=== PATIENT | female | born 1955 | race Caucasian/White ===

== ENCOUNTER 2021-09-02 10:35 | Outpatient (REF) | payer OTHER, SELFPAY ==
[2021-09-02 13:49] LABS: Basophils Absolute Auto 0.1 X10*3/uL (0.0-0.2); Basophils Percent Auto 0.6 % (0-2); Eosinophils Absolute Auto 2.6 X10*3/uL (0.0-0.4); Eosinophils Percent Auto 22.4 % (0-4); Imm Gran Abs Auto 0.05 X10*3/uL (0.00-0.03); Imm Gran Pct Auto 0.4 % (0.0-0.4); Lymphocytes Absolute Auto 1.5 X10*3/uL (1.2-4.9); Lymphocytes Percent Auto 13.1 % (20-40); MANUAL DIFF FLAG SCAN; Mean Corpuscular HGB Conc 33.3 g/dl (31.0-35.0); Mean Corpuscular Hemoglobin 32.5 pg (27.0-33.0); Mean Corpuscular Volume 97.6 fL (80.0-98.0); Mean Platelet Volume 12.1 fL (9.4-12.3); Monocytes Percent Auto 8.3 % (2-11); Neutrophils Absolute Auto 6.5 x10*3/uL (2.0-8.3); Neutrophils Percent Auto 55.2 % (45-73); Platelet Count 191 X10*3/uL (160-400); Red Blood Count 3.69 X10*6/uL (4.20-5.50); Red Cell Distribution Width 13.2 % (11.0-16.0); SCAN SMEAR FLAG 1; White Blood Count 11.7 X10*3/uL (4.8-10.8)
[2021-09-02 14:00] LABS: C Reactive Protein 0.49 mg/dL (< or = 0.50)
[2021-09-02 14:15] LABS: SLIDE REVIEW VERIFIED
[2021-09-02 14:23] LABS: Erythrocyte Sedimentation Rate 4 MM/HR (0-20)
== END 2021-09-02 10:36 | disposition home or self-care (01) ==
LOC: HO.10HDL 10:35
PROVIDERS: Visit Provider Otolaryngology
DX: L50.9 Urticaria, unspecified (principal)
CPT/HCPCS: 36415; 85025; 85652; 86140

== ENCOUNTER 2021-09-16 10:52 | Outpatient (REF) | payer OTHER, SELFPAY ==
[2021-09-17 04:23] LABS: HBS Num1 3.02 mIU/mL (0-7.99); HBc Num1 0.07 S/CO (0.00-0.79); HBsAGNum1 0.31 S/CO (0.00-0.99); HIV AB/AG Nonreactive (Nonreactive); HIV Num 1 0.07 S/CO (0.00-0.99); Hepatitis B Core Antibody Nonreactive (Nonreactive); Hepatitis B Surface Antigen Negative (Negative); ~HepC Num1 0.15 S/CO (0.00-0.79); ~Hepatitis B Surface Antibody NONREACTIVE (Nonreactive); ~Hepatitis C Antibody Nonreactive (Nonreactive)
[2021-09-18 03:38] LABS: Syphilis Screen Nonreactive (Nonreactive)
[2021-09-18 11:32] LABS: Immunoglobulin A 203 mg/dL (70-320)
[2021-09-18 16:36] LABS: Transglutaminase IgA <1.0 U/mL
== END 2021-09-16 10:53 | disposition home or self-care (01) ==
LOC: HO.LAB 10:52
PROVIDERS: Visit Provider Internal Medicine
DX: R21 Rash and other nonspecific skin eruption (principal); Z86.16 Personal history of COVID-19; Z11.3 Encounter for screening for infections with a predominantly sexual mode of transmission
CPT/HCPCS: 36415; 82784; 83516; 86704; 86706; 86780; 86803; 87340; 87389

== ENCOUNTER 2022-04-21 05:56 | Day surgery (SDC) | payer OTHER, SELFPAY ==
[2022-04-15 09:07] VITALS: BMI 28.5
--- NOTE | 2022-04-17 10:06 | MHC.SHP ---
Pre-Procedural Eval Section A Date of Service: 04/17/22 The patient is an INPATIENT: No Changes since office visit: No Cold of Flu in the past 2 weeks, No New Medical Problems, No Changes in Medication and No Patient answered all questions The History & Physical has been completed within 30 days and I have reviewed it.: Yes Section B Chief Complaint: cataract Allergies: Allergies Allergy/AdvReac Type Severity Reaction Status Date / Time amoxicillin [From AUGMENTIN] AdvReac Intermediate HIVES Unverified 04/15/22 09:03 clavulanic acid AdvReac Intermediate HIVES Unverified 04/15/22 09:03 [From AUGMENTIN] telithromycin [From KETEK] AdvReac Intermediate HIVES Unverified 06/14/20 18:48 terbinafine [From LAMISIL] AdvReac Intermediate HIVES Unverified 04/15/22 09:03 Plan Diagnosis/Plan: Unchanged I have reviewed the history and physical and performed a pertinent physical examination on my patient. No changes have occurred unless specified.
--- NOTE | 2022-04-18 08:52 | HO.ANESPROP2 ---
Documented by User: Shweta Ventura NP 04/18/22 08:53 HPI - Anesthesia Eval Consult details Narrative: 66yo F for Left Cataract Extraction IOL Insertion PCP cleared No prev cataract on record PMFSH Active Problems Active Problems: All Active Problems (Updated 04/14/22 @ 15:02 by Vicki Bailey, CHANTEL) Hypertension (Acute) Rash (Acute) Past Medical History Medical History (Updated 04/14/22 @ 15:02 by Vicki Bailey RN) GERD (gastroesophageal reflux disease) Gout Hypertension Rash Surgical History Surgical History (Updated 04/15/22 @ 09:06 by Vicki Bailey, CHANTEL) History of bunionectomy of left great toe History of cholecystectomy History of foot surgery History of laryngoscopy History of meniscectomy of left knee History of nasal surgery Hx of colonoscopy Hx of hand surgery Hx of repair of right rotator cuff Social History Social History Are you a primary director day care center to a significant other at home: No Do you presently have visiting nurse or other home services: No Patient Tobacco Use Status: Former Tobacco user Quit Date: 8 yrs ago Tobacco use type: Cigarette Second Hand Smoke Exposure: No Use of substances other than those prescribed or required for medical reasons: No Have you been hit, kicked, punched, or otherwise hurt by someone within the past year? If so, by whom?: No Are you DNR?: No Advance Directives: No Advance Directives Information Provided: Yes Advance Directives on File: No Recently lost weight without trying: No Eating poorly because of decreased appetite: No Nutrition Risks: No Nutritional Risk Meds Allergies Allergy/AdvReac Type Severity Reaction Status Date / Time amoxicillin [From AUGMENTIN] AdvReac Intermediate HIVES Verified 04/21/22 06:28 clavulanic acid AdvReac Intermediate HIVES Verified 04/21/22 06:28 [From AUGMENTIN] telithromycin [From KETEK] AdvReac Intermediate HIVES Verified 04/21/22 06:28 terbinafine [From LAMISIL] AdvReac Intermediate HIVES Verified 04/21/22 06:28 Home Medications Medication Instructions Recorded Confirmed Last Taken Type allopurinol 100 mg tablet 100 mg PO DAILY 04/14/22 04/15/22 04/21/22 History colchicine 0.6 mg tablet 0.6 mg PO DAILY PRN Gout Flare ups 04/14/22 04/15/22 Unknown History olmesartan 40 1 tab PO DAILY 04/14/22 04/15/22 Unknown History mg-hydrochlorothiazide 25 mg tablet (Benicar HCT) valacyclovir 1 gram tablet 1,000 mg PO BID 04/14/22 04/15/22 Unknown History doxepin 25 mg capsule 25 mg PO BEDTIME 04/15/22 04/15/22 Unknown History ferrous sulfate 325 mg (65 mg 325 mg PO DAILY 04/15/22 04/15/22 Unknown History iron) tablet (iron) Exam Exam Date and Time: April 18, 2022 0852 Height,Weight and Vital Signs: Height 5 ft 8 in Weight 85.275 kg Assessment and Plan Assessment Anesthesia Assessment: Chart Reviewed Documented by User: Anika Bond MD 04/21/22 08:48 [facility] Past Medical History Medical History (Updated 04/14/22 @ 15:02 by Vicki Bailey RN) GERD (gastroesophageal reflux disease) Gout Hypertension Rash Family History Family history of problems with anesthesia: No Surgical History Surgical History (Updated 04/15/22 @ 09:06 by Vicki Bailey, CHANTEL) History of bunionectomy of left great toe History of cholecystectomy History of foot surgery History of laryngoscopy History of meniscectomy of left knee History of nasal surgery Hx of colonoscopy Hx of hand surgery Hx of repair of right rotator cuff History of Problems with Anesthesia: No Social History Social History Are you a primary director day care center to a significant other at home: No Do you presently have visiting nurse or other home services: No Patient Tobacco Use Status: Former Tobacco user Quit Date: 8 yrs ago Tobacco use type: Cigarette Second Hand Smoke Exposure: No Use of substances other than those prescribed or required for medical reasons: No Have you been hit, kicked, punched, or otherwise hurt by someone within the past year? If so, by whom?: No Are you DNR?: No Advance Directives: No Advance Directives Information Provided: Yes Advance Directives on File: No Recently lost weight without trying: No Eating poorly because of decreased appetite: No Nutrition Risks: No Nutritional Risk Meds Allergies Allergy/AdvReac Type Severity Reaction Status Date / Time amoxicillin [From AUGMENTIN] AdvReac Intermediate HIVES Verified 04/21/22 06:28 clavulanic acid AdvReac Intermediate HIVES Verified 04/21/22 06:28 [From AUGMENTIN] telithromycin [From KETEK] AdvReac Intermediate HIVES Verified 04/21/22 06:28 terbinafine [From LAMISIL] AdvReac Intermediate HIVES Verified 04/21/22 06:28 Home Medications Medication Instructions Recorded Confirmed Last Taken Type allopurinol 100 mg tablet 100 mg PO DAILY 04/14/22 04/15/22 04/21/22 History colchicine 0.6 mg tablet 0.6 mg PO DAILY PRN Gout Flare ups 04/14/22 04/15/22 Unknown History olmesartan 40 1 tab PO DAILY 04/14/22 04/15/22 Unknown History mg-hydrochlorothiazide 25 mg tablet (Benicar HCT) valacyclovir 1 gram tablet 1,000 mg PO BID 04/14/22 04/15/22 Unknown History doxepin 25 mg capsule 25 mg PO BEDTIME 04/15/22 04/15/22 Unknown History ferrous sulfate 325 mg (65 mg 325 mg PO DAILY 04/15/22 04/15/22 Unknown History iron) tablet (iron) Exam Height,Weight and Vital Signs: Height 5 ft 8 in Weight 85.275 kg Vital Signs Temp Pulse Resp BP Pulse Ox O2 Del Method 04/21/22 07:55 97 F 72 16 93/45 L 96 Room Air 04/21/22 06:08 96.9 F 84 18 112/48 L 98 Room Air Airway Mallampati Class: II TM Dist: >3cm Neck ROM: Full Loose/Missing/Broken Teeth: No Heart: RRR Lungs: CTAB Assessment and Plan Assessment Anesthesia Assessment: Anesthesia Plan Discussed Final Anesthetic Review Family History of Problems with Anesthesia: No History of Problems with Anesthesia: No NPO: Yes ASA Class: II Final Preanesthetic Review: No Changes in Pt Med Stat, Meds/Allgs Chart Reviewed, Consent Obtained/Reviewed and Anes Risks/Benef Reviewed Patient Risk: Low Procedure Risk: Low Assessment/Block/Sedation in SS: Assess/Block/Sedation-SS Anesthetic Plan Anesthetic Plan: MAC: Disposition: Standard PACU
[2022-04-21 06:08] VITALS: BP 112/48; PULSE 84; RESP 18; TEMP 36.1; O2SAT 98
[2022-04-21] MEDS: Tetracaine HCl/PF 0.5% Oph Sol 4 ML DROPS 1 DROP EYE-LEFT (06:29)
[2022-04-21] MEDS: Lactated Ringers 500 ML 50 ML IV (06:29)
[2022-04-21] MEDS: Cyclopentolate 1 % Ophth Sol 2 ML DRPBTL 1 DROP EYE-LEFT ×3 (06:29→06:32)
[2022-04-21] MEDS: Tropicamide 1 % Ophth Sol 3 ML BTL 1 DROP EYE-LEFT ×3 (06:30→06:33)
[2022-04-21] MEDS: Phenylephrine HCL 2.5% Oph SoL 2 ML BOTTLE 1 DROP EYE-LEFT ×3 (06:31→06:32)
--- NOTE | 2022-04-21 07:17 | HO.PNOPHT ---
Ophthalmology Procedure Procedure Date of Service: 04/21/22 Ophthalmology Viscoelastic: Healajith Duet Dual Pack Pro Ophthalmology Lenses: TECNIS [id number] (22.5) Procedure Notes: PREOPERATIVE DIAGNOSIS: Decreased visual acuity left eye secondary to cataract POSTOPERATIVE DIAGNOSIS: Same PROCEDURE: Left cataract extraction with intraocular lens insertion SURGEON: Aydin Gibbons M.D. ANESTHESIA: Topical/MAC ESTIMATED BLOOD LOSS: None COMPLICATIONS: None After obtaining informed consent, the patient was brought to the operation room suite and placed in the supine position. After adequate sedation per anesthesia, topical drops of Tetracaine were given to the left eye. The eye was then prepped and draped in the usual sterile fashion. The operating room microscope was then positioned over the operative eye and a lid speculum placed. A paracentesis was created. Viscoelastic was then instilled into the anterior chamber. A three plane incision was then created temporally, utilizing a 2.85 mm keratome. Capsulotomy forceps were then utilized to create a circular tear capsulotomy. Hydrodissection and hydrodelineation were carried out until adequate mobilization of the nucleus occurred. Phacoemulsification was then utilized to remove the dense central nucleus followed by removal of the cortical material utilizing the automated aspiration irrigation unit. Viscoat elastic was instilled into the posterior capsular bag followed by placement of a posterior chamber intraocular lens without difficulty. The residual Viscoat elastic was then removed utilizing the automated IA machine. The wound was check and found to be watertight. The patient tolerated the procedure well and the lid speculum was removed. Intracameral injection of Vigamox 0.1 mL followed by a subtenon injection of Kenalog-40 0.2 mL were administered. The patient will be seen in the a.m.
[2022-04-21 07:55] VITALS: BP 93/45; PULSE 72; RESP 16; TEMP 36.1; O2SAT 96
== END 2022-04-21 08:10 | disposition home or self-care (01) ==
PROVIDERS: PCP Internal Medicine; Visit Provider Ophthalmology
PROC: (CPT 66985; principal; 2022-04-21 07:30)
DX: H25.12 Age-related nuclear cataract, left eye (principal); H40.013 Open angle with borderline findings, low risk, bilateral; H52.4 Presbyopia; I10 Essential (primary) hypertension; L30.9 Dermatitis, unspecified; Z79.899 Other long term (current) drug therapy; Z88.1 Allergy status to other antibiotic agents; Z88.8 Allergy status to other drugs, medicaments and biological substances; Z87.891 Personal history of nicotine dependence
CPT/HCPCS: 66984; J2250; J3010; J3300; V2632

== ENCOUNTER 2022-04-28 07:17 | Day surgery (SDC) | payer OTHER, SELFPAY ==
[2022-04-15 09:10] VITALS: BMI 28.5
--- NOTE | 2022-04-24 08:46 | MHC.SHP ---
Pre-Procedural Eval Section A Date of Service: 04/24/22 The patient is an INPATIENT: No Changes since office visit: No Cold of Flu in the past 2 weeks, No New Medical Problems, No Changes in Medication and No Patient answered all questions The History & Physical has been completed within 30 days and I have reviewed it.: Yes Section B Chief Complaint: cataract Allergies: Allergies Allergy/AdvReac Type Severity Reaction Status Date / Time amoxicillin [From AUGMENTIN] AdvReac Intermediate HIVES Verified 04/21/22 06:28 clavulanic acid AdvReac Intermediate HIVES Verified 04/21/22 06:28 [From AUGMENTIN] telithromycin [From KETEK] AdvReac Intermediate HIVES Verified 04/21/22 06:28 terbinafine [From LAMISIL] AdvReac Intermediate HIVES Verified 04/21/22 06:28 Plan Diagnosis/Plan: Unchanged I have reviewed the history and physical and performed a pertinent physical examination on my patient. No changes have occurred unless specified.
--- NOTE | 2022-04-25 09:58 | HO.ANESPROP2 ---
Documented by User: Shweta Ventura NP 04/25/22 09:59 HPI - Anesthesia Eval Consult details Narrative: 66yo F for Right Cataract Extraction IOL Insertion PCP cleared Left eye 04/21/22 with TIVA: Fent 1?, Midaz 1 PMFSH Active Problems Active Problems: All Active Problems (Updated 04/14/22 @ 15:02 by Vicki Bailey RN) Hypertension (Acute) Rash (Acute) Past Medical History Medical History (Updated 04/14/22 @ 15:02 by Vicki Bailey RN) GERD (gastroesophageal reflux disease) Gout Hypertension Rash Family History Family history of problems with anesthesia: No Surgical History Surgical History (Updated 04/15/22 @ 09:06 by Vicki Bailey RN) History of bunionectomy of left great toe History of cholecystectomy History of foot surgery History of laryngoscopy History of meniscectomy of left knee History of nasal surgery Hx of colonoscopy Hx of hand surgery Hx of repair of right rotator cuff History of Problems with Anesthesia: No Social History Social History Are you a primary medicare insurance specialist to a significant other at home: No Do you presently have visiting nurse or other home services: No Patient Tobacco Use Status: Former Tobacco user Quit Date: 8 yrs ago Tobacco use type: Cigarette Second Hand Smoke Exposure: No Use of substances other than those prescribed or required for medical reasons: No Have you been hit, kicked, punched, or otherwise hurt by someone within the past year? If so, by whom?: No Are you DNR?: No Advance Directives: No Advance Directives Information Provided: Yes Advance Directives on File: No Recently lost weight without trying: No Eating poorly because of decreased appetite: No Nutrition Risks: No Nutritional Risk Meds Allergies Allergy/AdvReac Type Severity Reaction Status Date / Time amoxicillin [From AUGMENTIN] AdvReac Intermediate HIVES Verified 04/21/22 06:28 clavulanic acid AdvReac Intermediate HIVES Verified 04/21/22 06:28 [From AUGMENTIN] telithromycin [From KETEK] AdvReac Intermediate HIVES Verified 04/21/22 06:28 terbinafine [From LAMISIL] AdvReac Intermediate HIVES Verified 04/21/22 06:28 Home Medications Medication Instructions Recorded Confirmed Last Taken Type allopurinol 100 mg tablet 100 mg PO DAILY 04/14/22 04/15/22 04/28/22 History colchicine 0.6 mg tablet 0.6 mg PO DAILY PRN Gout Flare ups 04/14/22 04/15/22 Unknown History olmesartan 40 1 tab PO DAILY 04/14/22 04/15/22 Unknown History mg-hydrochlorothiazide 25 mg tablet (Benicar HCT) valacyclovir 1 gram tablet 1,000 mg PO BID 04/14/22 04/15/22 Unknown History doxepin 25 mg capsule 25 mg PO BEDTIME 04/15/22 04/15/22 Unknown History ferrous sulfate 325 mg (65 mg 325 mg PO DAILY 04/15/22 04/15/22 Unknown History iron) tablet (iron) Exam Exam Date and Time: April 25, 2022 09 Height,Weight and Vital Signs: Height 5 ft 8 in Weight 85.275 kg Assessment and Plan Assessment Anesthesia Assessment: Chart Reviewed Final Anesthetic Review Family History of Problems with Anesthesia: No History of Problems with Anesthesia: No Documented by User: Anika Bond MD 04/28/22 09:01 [facility] Past Medical History Medical History (Updated 04/14/22 @ 15:02 by Vicki Bailey RN) GERD (gastroesophageal reflux disease) Gout Hypertension Rash Surgical History Surgical History (Updated 04/15/22 @ 09:06 by Vicki Bailey, CHANTEL) History of bunionectomy of left great toe History of cholecystectomy History of foot surgery History of laryngoscopy History of meniscectomy of left knee History of nasal surgery Hx of colonoscopy Hx of hand surgery Hx of repair of right rotator cuff Social History Social History Are you a primary medicare insurance specialist to a significant other at home: No Do you presently have visiting nurse or other home services: No Patient Tobacco Use Status: Former Tobacco user Quit Date: 8 yrs ago Tobacco use type: Cigarette Second Hand Smoke Exposure: No Use of substances other than those prescribed or required for medical reasons: No Have you been hit, kicked, punched, or otherwise hurt by someone within the past year? If so, by whom?: No Are you DNR?: No Advance Directives: No Advance Directives Information Provided: Yes Advance Directives on File: No Recently lost weight without trying: No Eating poorly because of decreased appetite: No Nutrition Risks: No Nutritional Risk Meds Allergies Allergy/AdvReac Type Severity Reaction Status Date / Time amoxicillin [From AUGMENTIN] AdvReac Intermediate HIVES Verified 04/21/22 06:28 clavulanic acid AdvReac Intermediate HIVES Verified 04/21/22 06:28 [From AUGMENTIN] telithromycin [From KETEK] AdvReac Intermediate HIVES Verified 04/21/22 06:28 terbinafine [From LAMISIL] AdvReac Intermediate HIVES Verified 04/21/22 06:28 Home Medications Medication Instructions Recorded Confirmed Last Taken Type allopurinol 100 mg tablet 100 mg PO DAILY 04/14/22 04/15/22 04/28/22 History colchicine 0.6 mg tablet 0.6 mg PO DAILY PRN Gout Flare ups 04/14/22 04/15/22 Unknown History olmesartan 40 1 tab PO DAILY 04/14/22 04/15/22 Unknown History mg-hydrochlorothiazide 25 mg tablet (Benicar HCT) valacyclovir 1 gram tablet 1,000 mg PO BID 04/14/22 04/15/22 Unknown History doxepin 25 mg capsule 25 mg PO BEDTIME 04/15/22 04/15/22 Unknown History ferrous sulfate 325 mg (65 mg 325 mg PO DAILY 04/15/22 04/15/22 Unknown History iron) tablet (iron) Exam Height,Weight and Vital Signs: Height 5 ft 8 in Weight 85.275 kg Vital Signs Temp Pulse Resp BP Pulse Ox O2 Del Method 04/28/22 08:08 97.0 F 75 16 109/58 L 98 Room Air Airway Mallampati Class: II TM Dist: >3cm Neck ROM: Full Loose/Missing/Broken Teeth: No Heart: RRR Lungs: CTAB Assessment and Plan Assessment Anesthesia Assessment: Anesthesia Plan Discussed Final Anesthetic Review NPO: Yes ASA Class: II Final Preanesthetic Review: No Changes in Pt Med Stat, Meds/Allgs Chart Reviewed, Consent Obtained/Reviewed and Anes Risks/Benef Reviewed Patient Risk: Low Procedure Risk: Low Assessment/Block/Sedation in SS: Assess/Block/Sedation-SS Anesthetic Plan Anesthetic Plan: MAC: Disposition: Standard PACU
[2022-04-28] MEDS: Tetracaine HCl/PF 0.5% Oph Sol 4 ML DROPS 1 DROP EYE-RIGHT (07:53)
[2022-04-28] MEDS: Cyclopentolate 1 % Ophth Sol 2 ML DRPBTL 1 DROP EYE-RIGHT ×3 (07:54→08:01)
[2022-04-28] MEDS: Tropicamide 1 % Ophth Sol 3 ML BTL 1 DROP EYE-RIGHT ×3 (07:55→08:02)
[2022-04-28] MEDS: Phenylephrine HCL 2.5% Oph SoL 2 ML BOTTLE 1 DROP EYE-RIGHT ×3 (07:57→08:04)
[2022-04-28 08:08] VITALS: BP 109/58; PULSE 75; RESP 16; TEMP 36.1; O2SAT 98
[2022-04-28] MEDS: Lactated Ringers 500 ML 50 ML IV (08:08)
--- NOTE | 2022-04-28 09:38 | HO.PNOPHT ---
Ophthalmology Procedure Procedure Date of Service: 04/28/22 Ophthalmology Viscoelastic: Nick Ocampo Dual Pack Pro Ophthalmology Lenses: TECJAMISON [id number] (22) Procedure Notes: PREOPERATIVE DIAGNOSIS: Decreased visual acuity right eye secondary to cataract POSTOPERATIVE DIAGNOSIS: Same PROCEDURE: Right cataract extraction with intraocular lens insertion SURGEON: Aydin Gibbons M.D. ANESTHESIA: Topical/MAC ESTIMATED BLOOD LOSS: None COMPLICATIONS: None After obtaining informed consent, the patient was brought to the operating room suite and placed in the supine position. After adequate sedation per anesthesia, topical drops of Tetracaine were given to the right eye. The eye was then prepped and draped in the usual sterile fashion. The operating room microscope was then positioned over the operative eye and a lid speculum placed. A paracentesis was created. Viscoelastic was then instilled into the anterior chamber. A three plane incision was then created temporally, utilizing a 2.85 mm keratome. Capsulotomy forceps were then utilized to create a circular tear capsulotomy. Hydrodissection and hydrodelineation were carried out until adequate mobilization of the nucleus occurred. Phacoemulsification was then utilized to remove the dense central nucleus followed by removal of the cortical material utilizing the automated aspiration irrigation unit. Viscoelastic was instilled into the posterior capsular bag followed by placement of a posterior chamber intraocular lens without difficulty. The residual Viscoelastic was then removed utilizing the automated IA machine. The wound was checked and found to be watertight. The patient tolerated the procedure well and the lid speculum was removed. Intracameral injection of Vigamox 0.1 mL followed by a subtenon injection of Kenalog-40 0.2 mL were administered. The patient will be seen in the a.m.
== END 2022-04-28 10:05 | disposition home or self-care (01) ==
PROVIDERS: PCP Internal Medicine; Visit Provider Ophthalmology
PROC: (CPT 66985; principal; 2022-04-28 09:20)
DX: H25.11 Age-related nuclear cataract, right eye (principal); H52.4 Presbyopia; H40.013 Open angle with borderline findings, low risk, bilateral; I10 Essential (primary) hypertension; K21.9 Gastro-esophageal reflux disease without esophagitis; M10.9 Gout, unspecified; L30.9 Dermatitis, unspecified; Z79.899 Other long term (current) drug therapy; Z88.0 Allergy status to penicillin; Z88.1 Allergy status to other antibiotic agents; Z87.891 Personal history of nicotine dependence
CPT/HCPCS: 66984; J2250; J3010; J3300; V2632